=== PATIENT | female | born 1975 | race Caucasian/White ===

== ENCOUNTER 2018-03-30 21:46 | Emergency (ER) | payer OTHER ==
[~2018-03-30] VITALS: Ht 152.4 cm; Wt 77.3 kg
[~2018-03-30 21:46] MED LIST: ALBU8HFA PO; AMOX500C2 PO; AZIT250T PO; CLE150C PO; IBUP-24 PO; NO HOME MEDS
[2018-03-30 22:58] LABS: CLARITY,URINE CLEAR (Clear); COLOR,URINE YELLOW (Yellow); GLUCOSE, URINE NEGATIVE (Neg); KETONES,URINE NEGATIVE (Neg); LEUKOCYTE ESTERASE ,URINE NEGATIVE (Neg); NITRITES, URINE NEGATIVE (Neg); OCCULT BLOOD,URINE NEGATIVE (Neg); PROTEIN,URINE NEGATIVE (Neg); UROBILINOGEN,URINE 0.2 E.U/dL (0.2-1.0)
[2018-03-30 23:01] LABS: UA COLLECTION TYPE VOIDED
[2018-03-30 23:31] LABS: URINE HCG NEGATIVE (NEG)
[2018-03-30 23:34] LABS: ALBUMIN 3.9 G/DL (3.4-5.0); ANION GAP 10 (8-16); BLOOD UREA NITROGEN 13 MG/DL (7-18); BUN/CREATININE RATIO 15.9 (6.6-38.0); CALCIUM 9.5 MG/DL (8.5-10.1); CHLORIDE 103 MMOL/L (99-107); CREATININE 0.82 MG/DL (0.40-0.90); GLUCOSE 89 MG/DL (70-104); POTASSIUM 3.9 MMOL/L (3.5-5.1); SODIUM 138 MMOL/L (135-145); TOTAL CARBON DIOXIDE 25.3 MMOL/L (24-32); eGFR 76 ML/MIN
[2018-03-31] MEDS ORDERED: lisinopril 10 MG tablet PO ONE (00:05)
[2018-03-31] MEDS ORDERED: LISI10TA4 PO (00:06)
[2018-03-31 00:44] VITALS: BP 179/100
== END 2018-03-31 00:45 | disposition home or self-care (01) ==
LOC: ER 21:47
DX: R03.0 Elevated blood-pressure reading, without diagnosis of hypertension (principal)
CPT/HCPCS: 36415; 80048; 81003; 81025; 99284

== ENCOUNTER 2019-07-07 08:14 | Observation (INO) | payer MEDICAID, OTHER ==
[~2019-07-07] VITALS: Ht 149.9 cm; Wt 77.0 kg
[~2019-07-07 08:14] MED LIST changes: +LISI10TA4 PO
[2019-07-07] MEDS ORDERED: normal saline 1000ML IV soln IV ONE ×2 (08:40→09:50)
[2019-07-07 09:17] LABS: BASOPHILS # (AUTO) 0.1 X10'3 (0-0.2); EOSINOPHILS # (AUTO) 0.1 X10'3 (0-0.9); EOSINOPHILS % (AUTO) 0.6 % (0-6); HEMATOCRIT 39.5 % (35.0-45.0); HEMOGLOBIN 13.3 g/dl (12.0-16.0); LYMPHOCYTES % (AUTO) 16.7 % (21-51); MEAN CORPUSCULAR HEMOGLOBIN 30.6 PG (27.0-31.0); MEAN CORPUSCULAR HGB CONC 33.6 g/dL (33.0-36.5); MEAN CORPUSCULAR VOLUME 91.1 FL (78-98); MEAN PLATELET VOLUME 7.2 FL (7.4-10.4); MONOCYTES # (AUTO) 0.7 X10'3 (0-0.9); MONOCYTES % (AUTO) 5.7 % (2-12); NEUTROPHILS # (AUTO) 9.3 X10'3 (1.8-7.7); PLATELET COUNT 347 X10'3 (140-440); RED BLOOD COUNT 4.33 X10'6 (4.20-5.60); WHITE BLOOD COUNT 12.2 X10'3 (4.5-11.0)
[2019-07-07 09:44] LABS: ALANINE AMINOTRANSFERASE 36 U/L (12-78); ALBUMIN 4.1 G/DL (3.4-5.0); ALKALINE PHOSPHATASE 101 IU/L (46-116); ANION GAP 15 (8-16); ASPARTATE AMINO TRANSFERASE 21 U/L (10-37); BILIRUBIN,TOTAL 0.5 MG/DL (0.1-1.0); BLOOD UREA NITROGEN 8 MG/DL (7-18); BUN/CREATININE RATIO 10.5 (6.6-38.0); CALCIUM 9.7 MG/DL (8.5-10.1); CHLORIDE 103 MMOL/L (99-107); CREATININE 0.76 MG/DL (0.40-0.90); GLUCOSE 102 MG/DL (70-104); MAGNESIUM 1.9 MG/DL (1.5-2.4); POTASSIUM 3.7 MMOL/L (3.5-5.1); SODIUM 139 MMOL/L (135-145); TOTAL CARBON DIOXIDE 20.8 MMOL/L (24-32); TOTAL PROTEIN 8.1 G/DL (6.4-8.2); eGFR 83 ML/MIN
[2019-07-07 09:47] LABS: PARTIAL THROMBOPLASTIN TIME 27 SECONDS (22-32)
[2019-07-07 10:48] LABS: CLARITY,URINE CLEAR (Clear); COLOR,URINE YELLOW (Yellow); GLUCOSE, URINE NEGATIVE (Neg); KETONES,URINE NEGATIVE (Neg); LEUKOCYTE ESTERASE ,URINE NEGATIVE (Neg); NITRITES, URINE NEGATIVE (Neg); OCCULT BLOOD,URINE LARGE (Neg); PH,URINE 7.5 (4.8-8.0); PROTEIN,URINE NEGATIVE (Neg); UA COLLECTION TYPE CLN CATCH MIDSTREAM; UROBILINOGEN,URINE 0.2 E.U/dL (0.2-1.0)
[2019-07-07 10:53] LABS: SQUAMOUS EPITHELIAL CELL,UR FEW /LPF (FEW)
[2019-07-07 10:55] LABS: WBC,URINE 0-4 /HPF (0-4)
[2019-07-07 10:56] LABS: BACTERIA,URINE FEW /HPF (Neg)
[2019-07-07 11:08] LABS: URINE HCG NEGATIVE (NEG)
[2019-07-07] MEDS ORDERED: CefTRIAXone/D5W-Rocephin 1gm 50 ML IV ONE (12:35)
[2019-07-07] MEDS ORDERED: LORazepam 2 mg/ml vial IV ONE (13:05)
[2019-07-07 13:31] LABS: URINE AMPHETAMINE SCREEN NEGATIVE (Neg); URINE BARBITUATE SCREEN NEGATIVE (Neg); URINE BENZODIAZEPINES SCREEN NEGATIVE (Neg); URINE CANNABINOID SCREEN NEGATIVE (Neg); URINE COCAINE SCREEN NEGATIVE (Neg); URINE METHADONE SCREEN NEGATIVE (Neg); URINE OPIATE SCREEN NEGATIVE (Neg); URINE PHENCYCLIDINE SCREEN NEGATIVE (Neg)
[2019-07-07] MEDS ORDERED: morphine 2 MG/ML inj. syringe IV PRN (13:40)
[2019-07-07] MEDS ORDERED: ondansetron/PF 4mg/2ml inj IV PRN (13:40)
[2019-07-07] MEDS ORDERED: mag hydrox/Alum hydrox/simeth 30ml oral suspension PO PRN (13:40)
[2019-07-07] MEDS ORDERED: magnesium 4gm in 100ml NS 100 ML IV PRN (13:40)
[2019-07-07] MEDS ORDERED: magnesium 2GM in 50ml NS 50 ML IV PRN (13:40)
[2019-07-07] MEDS ORDERED: magnesium Cl slow-release 64mg tablet PO PRN (13:40)
[2019-07-07] MEDS ORDERED: potassium CL 10mEq/100ml bag 100 ML IV PRN ×2 (13:40)
[2019-07-07] MEDS ORDERED: HYDROcodone/acetaminophen 5mg/325mg tablet PO PRN (13:40)
[2019-07-07] MEDS ORDERED: potassium Cl 20 mEq SR tablet PO PRN ×2 (13:40)
[2019-07-07] MEDS ORDERED: magnesium hydroxide 30ml (MOM) UD suspension PO PRN (13:40)
[2019-07-07] MEDS ORDERED: LORazepam 0.5 MG tablet PO PRN (13:40)
[2019-07-07] MEDS ORDERED: acetaminophen 325mg tablet PO PRN ×2 (13:40)
[2019-07-07] MEDS: normal saline 1000ml 1,000 ML IV SCH (14:13)
[2019-07-07 14:15] VITALS: BP 173/102
[2019-07-07 14:17] VITALS: BP 176/108
--- NOTE | 2019-07-07 15:47 | NUR ---
Received patient report from ER nurse Ramon ROCA. Patient arrived to room 344B.
[2019-07-07] MEDS ORDERED: HYDROchlorothiazide 12.5mg capsule PO ONE (16:35)
[2019-07-07 18:00] VITALS: BP 161/96
--- NOTE | 2019-07-07 18:17 | NUR ---
Problems reprioritized. Patient report given, questions answered & plan of care reviewed with CHANELLE Calero.
--- NOTE | 2019-07-07 18:21 | NUR ---
Patient in room [facility] 344. I have received report from Lenka ROCA and had the opportunity to ask questions and assume patient care.
[2019-07-07] MEDS: heparin, porcine 5000 units/ml vial SQ SCH (19:13)
[2019-07-07 19:42] LABS: D-DIMER 0.51 MG/L FEU (0-0.50)
[2019-07-07] MEDS ORDERED: temazepam 15mg capsule PO PRN (21:00)
[2019-07-08] VITALS: BP 143/90
[2019-07-08] MEDS: normal saline 1000ml 1,000 ML IV SCH (02:48)
[2019-07-08 05:13] LABS: BASOPHILS # (AUTO) 0.1 X10'3 (0-0.2); BASOPHILS % (AUTO) 0.8 % (0-1); EOSINOPHILS % (AUTO) 0.5 % (0-6); HEMATOCRIT 37.1 % (35.0-45.0); HEMOGLOBIN 12.7 g/dl (12.0-16.0); LYMPHOCYTES # (AUTO) 2.3 X10'3 (1.1-4.8); LYMPHOCYTES % (AUTO) 24.1 % (21-51); MEAN CORPUSCULAR HEMOGLOBIN 31.1 PG (27.0-31.0); MEAN CORPUSCULAR HGB CONC 34.4 g/dL (33.0-36.5); MEAN CORPUSCULAR VOLUME 90.4 FL (78-98); MEAN PLATELET VOLUME 7.4 FL (7.4-10.4); MONOCYTES # (AUTO) 0.7 X10'3 (0-0.9); MONOCYTES % (AUTO) 6.8 % (2-12); NEUTROPHILS # (AUTO) 6.6 X10'3 (1.8-7.7); NEUTROPHILS % (AUTO) 67.8 % (42-75); PLATELET COUNT 323 X10'3 (140-440); RED CELL DISTRIBUTION WIDTH 13.9 % (11.5-14.5); WHITE BLOOD COUNT 9.7 X10'3 (4.5-11.0)
[2019-07-08 06:22] LABS: ALANINE AMINOTRANSFERASE 32 U/L (12-78); ALBUMIN 3.6 G/DL (3.4-5.0); ALBUMIN/GLOBULIN RATIO 0.9 (1.1-1.5); ALKALINE PHOSPHATASE 92 IU/L (46-116); ANION GAP 10 (8-16); ASPARTATE AMINO TRANSFERASE 18 U/L (10-37); BILIRUBIN,TOTAL 0.7 MG/DL (0.1-1.0); BLOOD UREA NITROGEN 9 MG/DL (7-18); CALCIUM 9.2 MG/DL (8.5-10.1); CHLORIDE 105 MMOL/L (99-107); CREATININE 0.82 MG/DL (0.40-0.90); GLUCOSE 98 MG/DL (70-104); MAGNESIUM 2.1 MG/DL (1.5-2.4); POTASSIUM 3.8 MMOL/L (3.5-5.1); SODIUM 139 MMOL/L (135-145); TOTAL CARBON DIOXIDE 23.8 MMOL/L (24-32); TOTAL PROTEIN 7.5 G/DL (6.4-8.2); eGFR 76 ML/MIN
--- NOTE | 2019-07-08 06:27 | NUR ---
Problems reprioritized. Patient report given, questions answered & plan of care reviewed with Lenka ROCA.
--- NOTE | 2019-07-08 06:29 | NUR ---
Patient in room [facility] 344. I have received report from Galilea ROCA and had the opportunity to ask questions and assume patient care.
[2019-07-08] MEDS ORDERED: pantoprazole 40mg Tablet.DR PO SCH (07:30)
[2019-07-08 07:36] VITALS: BP 144/92
[2019-07-08] MEDS: heparin, porcine 5000 units/ml vial SQ SCH (07:53)
[2019-07-08] MEDS ORDERED: CefTRIAXone 2gm/D5W 50ml 50 ML IV SCH (08:00)
[2019-07-08] MEDS ORDERED: K and/or MAG REPLACEMENT MC SCH (08:00)
[2019-07-08] MEDS ORDERED: HYDROchlorothiazide 25mg tablet PO SCH (08:00)
[2019-07-08] MEDS ORDERED: furosemide 20 MG/2 ML vial IV ONE (09:15)
[2019-07-08] MEDS ORDERED: FURO40TA4 PO (11:53)
[2019-07-08] MEDS ORDERED: LISI-604 PO (11:53)
[2019-07-08 12:29] VITALS: BP 144/93
== END 2019-07-08 13:00 | disposition home or self-care (01) ==
LOC: ER 08:15 → SUR 3N 15:49
PROVIDERS: ADMIT Internal Medicine; ATTEND Internal Medicine
DX: R07.89 Other chest pain (principal); I11.0 Hypertensive heart disease with heart failure; I50.9 Heart failure, unspecified; J06.9 Acute upper respiratory infection, unspecified; R00.0 Tachycardia, unspecified; F41.9 Anxiety disorder, unspecified; E66.9 Obesity, unspecified; E87.2 Acidosis; F10.10 Alcohol abuse, uncomplicated; J45.909 Unspecified asthma, uncomplicated; Z79.899 Other long term (current) drug therapy; Z68.34 Body mass index [BMI] 34.0-34.9, adult
CPT/HCPCS: 36415; 71045; 80053; 80305; 80320; 81001; 81025; 82948; 83605; 83735; 83880; 84145; 84443; 85025; 85379; 85610; 85730; 87040; 87081; 93005; 93306; 96365; 96366; 96372; 96375; 97116; 97161; 99284; G0378; J0696; J1644; J1940; J7030; 96376

== ENCOUNTER 2019-10-28 16:39 | Emergency (ER) | payer MEDICAID, OTHER ==
[~2019-10-28] VITALS: Ht 149.9 cm; Wt 74.5 kg
[~2019-10-28 16:39] MED LIST changes: -ALBU8HFA PO; -AMOX500C2 PO; -AZIT250T PO; -CLE150C PO; -IBUP-24 PO; +LISI-604 PO; -LISI10TA4 PO; -NO HOME MEDS
[2019-10-28 16:55] VITALS: BP 137/88
[2019-10-28] MEDS ORDERED: AMOX500C2 PO (17:33)
== END 2019-10-28 18:03 | disposition home or self-care (01) ==
LOC: ER 16:40
DX: J32.9 Chronic sinusitis, unspecified (principal); K08.89 Other specified disorders of teeth and supporting structures
CPT/HCPCS: 99283

== ENCOUNTER 2023-02-17 22:18 | Emergency (ER) | payer MEDICAID, OTHER ==
[~2023-02-17] VITALS: Ht 149.9 cm; Wt 70.5 kg
[~2023-02-17 22:18] MED LIST changes: -LISI-604 PO; +LISI5TAB22 PO
[2023-02-17 22:39] VITALS: BP 160/99
[2023-02-17] MEDS ORDERED: LIDOcaine 1% W/epiNEPHrine 1:100,000 20ml vial IJ ONE (22:55)
[2023-02-17] MEDS ORDERED: amox tr/potassium clavulanate 875/125mg TAB PO ONE (22:55)
[2023-02-17] MEDS ORDERED: ibuprofen tablet 400 MG TABLET PO ONE (22:55)
[2023-02-17] MEDS ORDERED: AMOX-117 PO (23:23)
== END 2023-02-17 23:48 | disposition home or self-care (01) ==
LOC: ER 22:19
DX: K04.7 Periapical abscess without sinus (principal)
CPT/HCPCS: 41800; 99284

== ENCOUNTER 2023-06-05 00:33 | Emergency (ER) | payer MEDICAID ==
[~2023-06-05] VITALS: Ht 149.9 cm; Wt 73.2 kg
[2023-06-05 00:38] VITALS: BP 123/93; PULSE 86; RESP 4; TEMP 97.9; O2SAT 100
[2023-06-05] MEDS ORDERED: PENI500T2 PO (04:25)
[2023-06-05] MEDS ORDERED: IBUP-1984 PO (04:27)
== END 2023-06-05 07:48 | disposition home or self-care (01) ==
LOC: ER 00:33
DX: K04.7 Periapical abscess without sinus (principal); R22.0 Localized swelling, mass and lump, head; K08.89 Other specified disorders of teeth and supporting structures; Z72.89 Other problems related to lifestyle; Z79.2 Long term (current) use of antibiotics; Z79.899 Other long term (current) drug therapy
CPT/HCPCS: 99283

== ENCOUNTER 2023-11-06 21:24 | Emergency (ER) | payer BC, MEDICAID ==
[~2023-11-06] VITALS: Ht 149.9 cm; Wt 80.0 kg
[2023-11-06 21:36] VITALS: BP 180/103; PULSE 90; RESP 16; TEMP 98.4; O2SAT 100
[2023-11-06 22:01] LABS: BASOPHILS # (AUTO) 0.1 X10'3 (0-0.2); EOSINOPHILS # (AUTO) 0.1 X10'3 (0-0.9); EOSINOPHILS % (AUTO) 0.7 % (0-6); HEMATOCRIT 38.2 % (35.0-45.0); LYMPHOCYTES # (AUTO) 2.9 X10'3 (1.1-4.8); LYMPHOCYTES % (AUTO) 28.3 % (21-51); MEAN CORPUSCULAR HEMOGLOBIN 30.8 PG (27.0-31.0); MEAN CORPUSCULAR VOLUME 90.7 FL (78-98); MEAN PLATELET VOLUME 7.4 FL (7.4-10.4); MONOCYTES # (AUTO) 0.8 X10'3 (0-0.9); NEUTROPHILS # (AUTO) 6.4 X10'3 (1.8-7.7); PLATELET COUNT 333 X10'3 (140-440); RED BLOOD COUNT 4.21 X10'6 (4.20-5.60); RED CELL DISTRIBUTION WIDTH 12.8 % (11.5-14.5); WHITE BLOOD COUNT 10.4 X10'3 (4.5-11.0)
[2023-11-06 22:19] LABS: ALANINE AMINOTRANSFERASE 34 U/L (12-78); ALBUMIN 4.1 G/DL (3.4-5.0); ALBUMIN/GLOBULIN RATIO 1.1 (1.1-1.5); ALKALINE PHOSPHATASE 93 IU/L (46-116); ANION GAP 9 (8-16); ASPARTATE AMINO TRANSFERASE 18 U/L (10-37); BILIRUBIN,TOTAL 0.8 MG/DL (0.1-1.0); BLOOD UREA NITROGEN 14 MG/DL (7-18); BUN/CREATININE RATIO 19.4 (10.0-20.0); CALCIUM 10.8 MG/DL (8.5-10.1); CHLORIDE 103 MMOL/L (99-107); CREATININE 0.72 MG/DL (0.40-0.90); GLUCOSE 98 MG/DL (70-104); LIPASE 37 U/L (16-77); POTASSIUM 3.8 MMOL/L (3.5-5.1); SODIUM 136 MMOL/L (135-145); TOTAL CARBON DIOXIDE 23.9 MMOL/L (24-32); TOTAL PROTEIN 7.8 G/DL (6.4-8.2); eCRCL 66 ML/MIN; eGFR 87 ML/MIN
== END 2023-11-06 23:48 | disposition home or self-care (01) ==
LOC: ER 21:27
DX: R20.2 Paresthesia of skin (principal); R20.0 Anesthesia of skin; E21.3 Hyperparathyroidism, unspecified; I10 Essential (primary) hypertension; Z79.899 Other long term (current) drug therapy
CPT/HCPCS: 36415; 80053; 83690; 85025; 99283

== ENCOUNTER 2024-03-28 17:21 | Emergency (ER) | payer BC ==
[~2024-03-28] VITALS: Ht 152.4 cm; Wt 77.7 kg
[2024-03-28 17:23] VITALS: BP 176/96; PULSE 113; RESP 14; TEMP 99; O2SAT 98
[2024-03-28] MEDS ORDERED: LIDO20SO16 PO (19:16)
[2024-03-28] MEDS ORDERED: AMOX-580 PO (19:16)
== END 2024-03-28 19:42 | disposition home or self-care (01) ==
LOC: ER 17:22
DX: J39.2 Other diseases of pharynx (principal); J02.9 Acute pharyngitis, unspecified; J32.9 Chronic sinusitis, unspecified; Z79.899 Other long term (current) drug therapy; I10 Essential (primary) hypertension; E21.3 Hyperparathyroidism, unspecified; F10.90 Alcohol use, unspecified, uncomplicated
CPT/HCPCS: 99283

== ENCOUNTER 2024-04-01 18:48 | Emergency (ER) | payer BC ==
[~2024-04-01] VITALS: Ht 149.9 cm; Wt 63.0 kg
[~2024-04-01 18:48] MED LIST changes: +AMOX-580 PO; +LIDO20SO16 PO
[2024-04-01 18:50] VITALS: BP 141/88; PULSE 92; RESP 18; TEMP 98.1; O2SAT 100
== END 2024-04-01 19:36 | disposition home or self-care (01) ==
LOC: ER 18:48
DX: J32.8 Other chronic sinusitis (principal); K12.1 Other forms of stomatitis; I10 Essential (primary) hypertension; E21.3 Hyperparathyroidism, unspecified; F10.90 Alcohol use, unspecified, uncomplicated; Z79.2 Long term (current) use of antibiotics; Z79.899 Other long term (current) drug therapy
CPT/HCPCS: 99282

== ENCOUNTER 2024-04-15 18:08 | Emergency (ER) | payer BC ==
[~2024-04-15] VITALS: Ht 149.9 cm; Wt 72.7 kg
[~2024-04-15 18:08] MED LIST changes: -AMOX-580 PO
[2024-04-16 00:27] VITALS: BP 155/93; PULSE 83; RESP 18; TEMP 98.3; O2SAT 100
== END 2024-04-16 00:29 | disposition home or self-care (01) ==
LOC: ER 18:08
DX: J39.2 Other diseases of pharynx (principal); I10 Essential (primary) hypertension; Z79.899 Other long term (current) drug therapy
CPT/HCPCS: 99285

== ENCOUNTER 2024-05-22 17:54 | Emergency (ER) | payer BC ==
[~2024-05-22] VITALS: Ht 149.9 cm; Wt 72.3 kg
[2024-05-22 18:17] VITALS: BP 129/71; PULSE 119; RESP 18; TEMP 97.8; O2SAT 99
[2024-05-22] MEDS ORDERED: AMOX500C7 PO (18:31)
[2024-05-22] MEDS ORDERED: HYDR-3965 PO (18:31)
[2024-05-23] MEDS ORDERED: LOSA-416 PO (02:08)
== END 2024-05-22 18:48 | disposition home or self-care (01) ==
LOC: ER 17:55
DX: S02.5XXA Fracture of tooth (traumatic), initial encounter for closed fracture (principal); Z79.2 Long term (current) use of antibiotics; Z79.899 Other long term (current) drug therapy; X58.XXXA Exposure to other specified factors, initial encounter; Y93.89 Activity, other specified; Y92.89 Other specified places as the place of occurrence of the external cause; Y99.8 Other external cause status
CPT/HCPCS: 99283

== ENCOUNTER 2024-05-23 01:27 | Emergency (ER) | payer BC ==
[~2024-05-23] VITALS: Ht 152.4 cm; Wt 72.7 kg
[~2024-05-23 01:27] MED LIST changes: +AMOX500C7 PO; +HYDR-3965 PO
[2024-05-23] MEDS ORDERED: LOSA-416 PO (02:08)
[2024-05-23] MEDS: predniSONE 20 mg tablet PO ONE (02:17)
[2024-05-23] MEDS: ceFAZolin 1gm IM kit IM ONE (02:17)
[2024-05-23 02:20] VITALS: BP 147/96; PULSE 101; RESP 17; TEMP 99.2; O2SAT 98
== END 2024-05-23 02:22 | disposition home or self-care (01) ==
LOC: ER 01:28
DX: K13.0 Diseases of lips (principal); K08.89 Other specified disorders of teeth and supporting structures; I10 Essential (primary) hypertension; Z79.2 Long term (current) use of antibiotics; Z79.899 Other long term (current) drug therapy
CPT/HCPCS: 96372; 99283; J0690; J7512

== ENCOUNTER 2024-06-26 15:22 | Emergency (ER) | payer BC ==
[~2024-06-26] VITALS: Ht 149.9 cm; Wt 75.0 kg
[~2024-06-26 15:22] MED LIST changes: -AMOX500C7 PO; -HYDR-3965 PO
[2024-06-26 15:25] VITALS: BP 170/99; PULSE 106; RESP 18; TEMP 97.6; O2SAT 100
[2024-06-26] MEDS ORDERED: CLIN-97 PO (16:04)
[2024-06-26] MEDS ORDERED: BENZ9GEL TOP (16:05)
== END 2024-06-26 17:12 | disposition home or self-care (01) ==
LOC: ER 15:22
DX: K04.7 Periapical abscess without sinus (principal); I10 Essential (primary) hypertension; E21.2 Other hyperparathyroidism; F10.90 Alcohol use, unspecified, uncomplicated; Z79.899 Other long term (current) drug therapy
CPT/HCPCS: 99283

== ENCOUNTER 2025-07-24 03:40 | Emergency (ER) | payer BC ==
[~2025-07-24] VITALS: Ht 152.4 cm; Wt 77.7 kg
[~2025-07-24 03:40] MED LIST changes: +BENZ9GEL TOP; +CLIN-224 PO
[2025-07-24 03:45] VITALS: BP 157/91; PULSE 110; RESP 16; TEMP 98.3; O2SAT 98
[2025-07-24] MEDS ORDERED: CLIN-197 PO (04:17)
--- NOTE | 2025-07-24 04:18 | Physician Documentation ---
HPI ~ General Chief Complaint: Tooth Problem Stated Complaint: DENTAL PAIN Time Seen by MD: 03:49 Primary Medical Doctor: NONE History of Present Illness HPI Comment Patient is here for dental pain. She has pain of the right upper incisors and present for a couple of days. Little bit of swelling tonight. She took a couple tablets of an old Augmentin prescription. Medication Reconciliation Allergies: Coded Allergies: No Known Allergies (Unverified , 05/23/24) Scheduled Benzocaine (Anbesol), 1 APPLIC TOP Q6H Clindamycin HCL* (Clindamycin HCL*), 1 CAP PO Q6H Lidocaine Hcl (Xylocaine Viscous), 5 ML PO Q2H PRN SORE THROAT Lisinopril (Lisinopril), 1 TAB PO BID Past Medical History Past Medical History: Hypertension, Hyperparathyroidism Past Surgical History: no surgical history Alcohol Use: Heavy Drug Use: none Lives In: Home Occupation: employed Physical Exam Vital Signs: Temperature: 98.3, Source: Temporal, Heart Rate: 110, Respiratory Rate: 16, BP: 157/91, Pulse Oximetry: 98, Weight: 77.730 Oxygen Flow Rate: 0 Physical Exam General: Awake and Alert, no acute distress. HEENT: Conjunctiva pink, Sclera clear, in the area of the right upper incisor there is only a very small piece of her tooth left that has some yellowish discoloration little bit of gingiva swelling. Neck: Supple Resp: Unlabored. Heart: Good perfusion Abdomen: Nondistended Extremities: No cyanosis,clubbing or edema. Skin: Warm and Dry. Neuro: no focal deficits Progress Results/Orders Results/Orders Completed Orders - MAK LUCAS MD Clindamycin Capsule (Cleocin Capsule) (07/24/25 03:55) Medications Received in ER Medications (Trade) Dose Ordered Sig/Gabriel Route PRN Reason Start Time Stop Time Status Last Admin Dose Admin (Cleocin capsule) 300 mg ONCE ONCE PO 07/24/25 03:55 07/24/25 03:56 DC 07/24/25 04:07 300 MG Vital Signs 07/24/25 03:45 Temp 98.3 Pulse 110 Resp 16 B/P (MAP) 157/91 Pulse Ox 98 O2 Flow Rate 0 Medical Decision Making Findings Patient is here for dental infection she does not have an abscess that he is draining. She was placed on clindamycin. Departure Impression: Primary Impression: Dental infection Condition: Stable Discharge Instructions: Dental Caries, Adult Referrals: NO PRIMARY CARE PROVIDER (PCP) Prescriptions Clindamycin HCl (Clindamycin HCl) 300 Mg Capsule 1 CAP PO Q6H for 10 Days, #40 CAP Prov: MAK LUCAS MD 07/24/25 Education Educated: Patient Educated regarding: diagnosis, treatment, prognosis, need for follow up Signature Scribe Signature: no scribe Attestation: no scribe MAK LUCAS MD Jul 24, 2025 04:18
== END 2025-07-24 04:24 | disposition home or self-care (01) ==
LOC: ER 03:40
DX: K04.7 Periapical abscess without sinus (principal); I10 Essential (primary) hypertension
CPT/HCPCS: 99283